=== PATIENT | male | born 1965 | race Caucasian/White ===

== ENCOUNTER 2019-11-04 08:15 | Emergency (ER) | payer SELFPAY ==
[2019-11-04 08:17] VITALS: BP 184/118; PULSE 96; RESP 18; TEMP 36.7; O2SAT 98; BMI 25.1
--- NOTE | 2019-11-04 08:22 | ED_ITS ---
HPI - Male Genitourinary General: Chief complaint: Urogenital-Male Stated complaint: Kidney Time Seen by Provider: 11/04/19 08:21 Source: patient Mode of arrival: ambulatory Limitations: no limitations History of Present Illness: HPI Narrative: Patient comes in today for complaints of urinary frequency and malaise. Patient reports for last few months he has had weakness and malaise. Patient reports that he 1 year ago was treated for renal calculi with lithotripsy at Dr. Hoang. Since that time patient has had noticed blood in his urine. Patient was in [place] 2 to 3 weeks ago helping his sister move and felt weak. Patient went and seen a physician in [place] and was diagnosed with a renal cyst. Patient was told that this may cause his urinary frequency and his blood pressure to be elevated. Patient was concerned until he needed evaluated further and return to [place] for this evaluation. Patient states no routine medications. Patient has no routine [facility] physician. Review of Systems General: Reports: 10 or more systems reviewed and unremarkable except in HPI and below Const: Reports: malaise : Reports: urinary frequency and urinary urgency PFSH ED PFSH: Statuses (acute, chronic, etc) shown below reflect problem list status as previously entered and may not be historically accurate Social History Smoking and tobacco status: never smoked Physical Exam Const: COMMON NORMALS: no apparent distress and oriented x3 GENERAL APPEARANCE: cooperative HENMT: COMMON NORMALS: normocephalic, external ears normal, EAC's normal, TM's normal bilaterally and external nose normal HEAD & SCALP: normal to inspection and normocephalic FACE & SINUS: normal facial exam NOSE: external nose normal GENERAL EAR: hearing not grossly impaired EXTERNAL EAR: Yes external ears normal EXTERNAL AUDITORY CANAL: EAC's normal TYMPANIC MEMBRANE: TM's normal bilaterally MOUTH: oral and palatal mucosa normal THROAT: posterior oropharynx normal Eye: COMMON NORMALS: PERRL and EOMs intact bilaterally PUPIL: Yes PERRL Neck/C-Spine: COMMON NORMALS: full ROM and no lymphadenopathy Lymph: LYMPHATIC: no lymphedema noted Chest: COMMONS NORMALS: inspection of chest normal and palpation of chest normal Resp: COMMON NORMALS: normal respiratory effort and clear to auscultation bilaterally AUSCULTATION: clear to auscultation bilaterally Cardio: COMMON NORMALS: regular rate and regular rhythm RATE: regular rate RHYTHM: regular rhythm GI: COMMON NORMALS: normal to inspection, nondistended, normoactive bowel sounds and non-tender : COMMON NORMALS: Yes no CVA tenderness BLADDER/KIDNEY EXAM: Yes no CVA tenderness Back/Pelvis: COMMON NORMALS: no CVA tenderness and thoracic and lumbar spine normal to inspection Extremity: COMMON NORMALS: normal to inspection GENERAL: No edema Neuro: COMMON NORMALS: oriented x3, moves all extremities and no focal motor deficits Psych: COMMON NORMALS: mental status grossly normal and cooperative Skin: COMMON NORMALS: no rashes or lesions noted GENERAL SKIN EXAM: no rashes or lesions noted Course Vital Signs: Vital signs: Vital Signs Temperature 98.1 F 11/04/19 08:17 Pulse Rate 72 11/04/19 10:04 Respiratory Rate 16 11/04/19 10:04 Blood Pressure 157/103 11/04/19 10:04 Pulse Oximetry 97 11/04/19 10:04 MDM - Male MDM Narrative: Medical decision making narrative: Patient comes in today with concerns of malaise and blood in his urine. Patient also reports some left flank area pain and discomfort. Patient appears well. Patient appears in no acute distress. Exam notes abdomen soft nontender no CVA tenderness. Skin is warm and dry and color is pink. Differential diagnosis includes pyelonephritis, renal calculi, renal colic, UTI, prostatitis, hematuria idiopathic, bladder carcinoma, renal carcinoma, malingering, hypertension uncontrolled. Laboratory values noted no anemia and no signs of acute renal injury. Urinalysis showed blood cells in the urine both red and white. CT scan of the abdomen and pelvis noted a small renal cyst and a small renal stone in the left kidney. No other signs of abnormality was noted on the scan. Vital signs were stable. Reviewed exam with patient recommended follow-up with primary care and urology for further evaluation of the hematuria and malaise. Patient reports understanding and agreed to plan with need for follow-up. Lab Data: Labs: Lab Results 11/04/19 11/04/19 11/04/19 Range/Units 08:38 08:38 08:48 WBC 5.0 (4.0-10.0) 10^3/ uL RBC 5.33 H (4.1-5.3) 10^6/u L Hgb 15.8 (11.7-16.6) g/dL Hct 45.8 (42.0-52.0) % MCV 85.9 (80-94) fL MCH 29.6 (28.0-34.0) pg MCHC 34.5 (30.0-36.0) g/dL RDW 12.8 (12.1-15.1) % Plt Count 221 (130-400) 10^3/c mm MPV 10.8 H (7.4-10.4) fL Neut % (Auto) 59.7 % Lymph % (Auto) 29.5 % Izard % (Auto) 7.0 % Eos % (Auto) 2.8 % Baso % (Auto) 0.6 % Neut # (Auto) 3.0 (1.8-7.7) 10^3/u L Lymph # (Auto) 1.5 (0.8-4.8) 10^3/u L Izard # (Auto) 0.4 (0.2-0.9) 10^3/u L Eos # (Auto) 0.1 (0.0-0.8) 10^3/u L Baso # (Auto) 0.0 (0.0-0.1) 10^3/u L Nucleated RBC % (a uto) 0 % Nucleated RBCs # 0.0 /100WBC Sodium 142 (136-145) mmol/L Potassium 3.9 (3.5-5.1) mmol/L Chloride 106 (98-107) mmol/L Carbon Dioxide 24 (22-29) mmol/L Anion Gap 15.9 (5-19) BUN 15 (6-20) mg/dL Creatinine 0.7 (0.7-1.2) mg/dL GFR Calculation 117.1 (90-130) mL/min Glucose 97 (74-109) mg/dL Calcium 10.1 H (8.6-10.0) mg/Dl Total Bilirubin 0.6 (0.15-1.2) mg/dL AST 20 (0-40) U/L ALT 28 (0-41) U/L Alkaline Phosphata se 83 (40-130) IU/L Total Protein 7.3 (6.6-8.7) g/dL Albumin 4.9 (3.5-5.2) g/dL Globulin 2.4 (1.3-4.6) g/dL Urine Color Yellow (Yellow) Urine Appearance Clear (CLEAR) Urine pH 5 (5-7) Ur Specific Gravit y 1.025 (1.005-1.030) Urine Protein Neg (Negative) Urine Glucose (UA) Norm (Normal) Urine Ketones Negative (Negative) Urine Occult Blood 3+ H (Negative) Urine Nitrate Negative (Negative) Urine Bilirubin 1+ H (NEGATIVE) Urine Urobilinogen Norm (Negative) mg/dL Ur Leukocyte Deb ase Negative (Negative) Urine RBC 25-40 H (0-2) /hpf Urine WBC 5-10 H (0-5) /hpf Ur Squamous Epith Cells 0-4 H (0-5) Urine Bacteria 1+ H (NONE) Hyaline Casts 0-4 H Urine Mucus 1+ Discharge Plan Discharge Patient Disposition: Home, Self-Care Clinical Impression: Renal cyst Hematuria Qualifiers: Hematuria type: unspecified type Qualified Code(s): R31.9 - Hematuria, unspecified Condition: Stable Prescriptions: No Action aspirin 325 mg Tablet 325 mg PO Q4H PRN (Reason: Pain) RF: 0 ibuprofen 200 mg Tablet 200 mg PO Q6H PRN (Reason: Pain) RF: 0 Discharge Orders: Discharge Order (Routine); Ordered 11/04/19 Ordered By: Jesse Castro Discharge Diet: Usual diet Discharge Activity: Resume usual activity Activity Restrictions/Additional Instructions: Drink plenty of water Activity as tolerated Follow-up with primary care for further evaluation May need further lab testing to evaluate for fatigue and malaise, for example thyroid and testosterone Follow-up with Dr. Minaya relating Hematuria and renal cyst Return to ER for uncontrolled flank pain, or high fever Discharge Date/Time: 11/04/19 10:04 Coding Level of Care Code ED Apartment Community Manager for [employer] Fwd Exam Problem Focused
[2019-11-04 08:31] VITALS: PULSE 76; RESP 16; O2SAT 98
[2019-11-04 08:43] LABS: Basophils % 0.6 %; Eosinophils # 0.1 10^3/uL (0.0-0.8); Eosinophils % 2.8 %; Hematocrit 45.8 % (42.0-52.0); Hemoglobin 15.8 g/dL (11.7-16.6); Lymphocytes # 1.5 10^3/uL (0.8-4.8); Lymphocytes % 29.5 %; Mean Corpuscular HGB Conc 34.5 g/dL (30.0-36.0); Mean Corpuscular Hemoglobin 29.6 pg (28.0-34.0); Mean Corpuscular Volume 85.9 fL (80-94); Mean Platelet Volume 10.8 fL (7.4-10.4); Monocytes # 0.4 10^3/uL (0.2-0.9); Neutrophils % 59.7 %; Nucleated Red Blood Cells % 0 %; Platelet Count 221 10^3/cmm (130-400); Red Blood Count 5.33 10^6/uL (4.1-5.3); Red Cell Distribution Width 12.8 % (12.1-15.1)
[2019-11-04 08:58] LABS: Alanine Aminotransferase 28 U/L (0-41); Albumin Level 4.9 g/dL (3.5-5.2); Alkaline Phosphatase 83 IU/L (40-130); Anion Gap 15.9 (5-19); Aspartate Amino Transferase 20 U/L (0-40); Blood Urea Nitrogen 15 mg/dL (6-20); Calcium 10.1 mg/Dl (8.6-10.0); Carbon Dioxide 24 mmol/L (22-29); Chloride 106 mmol/L (98-107); Globulin 2.4 g/dL (1.3-4.6); Glomerular Filtration Rate 117.1 mL/min (90-130); Glucose 97 mg/dL (74-109); Potassium 3.9 mmol/L (3.5-5.1); Sodium 142 mmol/L (136-145); Total Bilirubin 0.6 mg/dL (0.15-1.2); Total Protein 7.3 g/dL (6.6-8.7)
--- NOTE | 2019-11-04 09:01 | CT_ITS ---
WS: [id number] CT scan of the abdomen and pelvis with IV contrast. Additional two-dimensional coronal and sagittal r econstruction was performed. 11/04/2019 Clinical Data: abnormal x-ray, stated to have renal cyst Comparison: CT abdomen and pelvis, 06/15/2018. DLP: 758.[address] scans at [facility] use at least one of these dose optimization techniques: automat ed exposure control; mA and/or kV adjustment per patient size (includes targeted exams where dose is matched to clinical indication); or iterative reconstruction. Findings: The lower lungs show no nodules, masses or effusions. The liver, gallbladder, spleen, adrenal glands and pancreas are normal. The kidneys show equal bilateral contrast excretion with a small left renal cortical cyst and small 0 .2 cm nonobstructing left renal calculus. The right kidney shows no cysts, masses, hydronephrosis or renal calculi.. The abdominal aorta is normal in size. No appendicitis or diverticulitis is seen. No abscess, adenopathy, ascites, mass, obstruction or free air is seen. The bladder is unremarkable. No inguinal hernia is seen. Prostate is enlarged. The bones of the lower thorax, lumbar spine, pelvis, and hips show moderate degenerative change of th e lower thoracic vertebral bodies. CT/CT abdomen pelvis w con* [id number] Impression: 1. Small nonobstructing 0.2 cm left renal calculus. 2. Negative for acute intra-abdominal or pelvic abnormalities.
[2019-11-04 09:06] LABS: Urine Appearance Clear (CLEAR); Urine Color Yellow (Yellow); pH Urine 5 (5-7)
[2019-11-04 09:07] LABS: Bilirubin Urine 1+ (NEGATIVE); Blood Urine 3+ (Negative); Glucose Urine UA Norm (Normal); Ketones Urine Negative (Negative); Leukocyte Esterase Urine Negative (Negative); Nitrate Urine Negative (Negative); Protein Urine Neg (Negative); Specific Gravity, Urine 1.025 (1.005-1.030); Urobilinogen Urine Norm (Negative)
[2019-11-04 09:08] LABS: Add Urine Culture? Yes; Bacteria Urine 1+; Hyaline Casts Urine 0-4; Mucus Urine 1+; RBC Urine 25-40 /hpf (0-2); Squamous Epithelial Cell Urine 0-4 (0-5)
--- NOTE | 2019-11-04 09:18 | PC.NURSE ---
Patient to CT following IV insertion at this time.
[2019-11-04] MEDS: iohexol 300 mg/mL 100 mL Btl IV (09:20)
--- NOTE | 2019-11-04 09:27 | PC.NURSE ---
Patient returned to room from CT at this time.
[2019-11-04 10:04] VITALS: BP 157/103; PULSE 72; RESP 16; O2SAT 97
--- NOTE | 2019-11-04 15:43 | DCPLANNER ---
manager lpn was asked to schedule a follow up appointment for patient with Dr. Minaya. manager lpn called the office of Dr. Minaya, spoke with Sherice, gave clinic patients information. manager lpn was told that patients information would be printed off and given to [place] for review. Clinic will call machine adjuster leader case trim with appointment information. manager lpn will call for appointment information.
--- NOTE | 2019-11-08 12:39 | DCPLANNER ---
Patient has a follow up appointment scheduled for Thursday, November 11, 2019 at 8:[address] Rhoades office.
--- NOTE | 2019-11-08 13:45 | DCPLANNER ---
outside sales account manager had message to speak with patient about getting established with a primary care physician. outside sales account manager called patient, unable to speak with patient at this time, a voicemail was left for patient to return caser phone call.
--- NOTE | 2019-11-09 14:26 | DCPLANNER ---
Patient returned oil field caser phone call, stated that he does not have a primary care physician at this time, but that he does not have insurance at this time. slot operations manager mailed patient both of the personal financial representative applications for him to fill out and turn in. slot operations manager also mailed patient oil field caser business card, so that when patient sees where he is at with the personal financial representative and wants help to get established with a primary care physician that patient can call medical case manager and medical case manager will help patient a physician.
--- NOTE | 2019-11-11 15:05 | DCPLANNER ---
Patient attended appointment scheduled for 11.11.[address] Minaya.
== END 2019-11-04 10:04 | disposition home or self-care (01) ==
PROVIDERS: Emergency Provider Nurse Practitioner Family
DX: N28.1 Cyst of kidney, acquired (principal); R31.9 Hematuria, unspecified; Z79.82 Long term (current) use of aspirin
CPT/HCPCS: 36415; 74177; 80053; 81001; 85025; 87086; 99282; Q9967

== ENCOUNTER 2019-11-11 07:06 | Outpatient (CLI) | payer SELFPAY ==
--- NOTE | 2019-11-11 07:15 | XRR_ITS ---
PROCEDURE INFORMATION: Exam: XR Abdomen, 1 View Exam date and time: 11/11/2019 7:18 AM Age: 53 years old Clinical indication: Condition or disease; Kidney or ureter condition; Calculus (stone) in kidney; Additional info: Renal stones TECHNIQUE: Imaging protocol: XR of the abdomen. Views: Frontal supine view of the abdomen. 1 View. COMPARISON: CR XR abdomen 1V* [id number] 10/06/2019 10:38 AM FINDINGS: Gastrointestinal tract: Prominent stool suggesting constipation. Nonvisualization of the superior most abdomen. Intraperitoneal space: Nonspecific 7 mm nodular calcification overlying left pelvis, which was not visualized on the prior study. If urolithiasis is of clinical concern, CT may further evaluation. Organs: Evaluation renal fossa is limited by overlying stool. Bones/joints: Mild degenerative change. XR/XR KUB [id number] IMPRESSION: Nonspecific 7 mm nodular calcification overlying left pelvis, which was not visualized on the prior study. If urolithiasis is of clinical concern, CT may further evaluation.
== END 2019-11-11 07:07 | disposition home or self-care (01) ==
PROVIDERS: PCP Urology; Visit Provider Urology
DX: N20.0 Calculus of kidney (principal)
CPT/HCPCS: 74018; 81001

== ENCOUNTER 2019-12-02 08:00 | Outpatient (CLI) | payer SELFPAY ==
--- NOTE | 2019-12-02 07:45 | XR_ITS ---
WS: [id number] ABDOMEN: SUPINE FILM HISTORY: Left ureteral calculus COMPARISON: 11/11/2019 and 11/04/2019 Normal bowel gas pattern. Right kidney: No renal or ureteral stone identified. Left kidney: Recently described stone in the LEFT pelvis has moved more distal and more midline, now overlying the bladder. Previously described distal LEFT ureteral stone is probably now within the uri nary bladder. Stone measures 4.9 mm. XR/XR KUB [id number] IMPRESSION: Distal LEFT renal stent is now probably in the urinary bladder.
== END 2019-12-02 08:01 | disposition home or self-care (01) ==
LOC: RAD 10:47
PROVIDERS: PCP Urology; Visit Provider Urology
DX: N20.1 Calculus of ureter (principal)
CPT/HCPCS: 74018